=== PATIENT | male | born 1950 | race African-American/Black ===

== ENCOUNTER → 2019-05-10 | Outpatient (CLI) | payer OTHER ==
[~2019-05-10] MED LIST: AMLODIPINE-BEN1 EACH PO; ASPIRIN EC81 M1 PO; ATORVASTATIN CA40 MG PO; FISH OIL 1,0001 EAC5 PO; LIALDA1.2 GM PO; LOPRESSOR 50 MG50 M1 PO; LOTREL 10-20 M1 EACH PO; PLAVIX 75 MG TA75 M1 PO
== END ==
LOC: MRI 09:12
DX: E27.8 Other specified disorders of adrenal gland (principal); D35.00 Benign neoplasm of unspecified adrenal gland; K86.89 Other specified diseases of pancreas; M47.816 Spondylosis without myelopathy or radiculopathy, lumbar region